=== PATIENT | female | born 1980 | race Caucasian/White ===

== ENCOUNTER → 2024-05-18 | Outpatient (CLI) | payer MEDICAID, SELFPAY ==
--- NOTE | 2024-05-18 | XR_ITS ---
Examination: Lumbar spine, 5 views Technique: Lumbar spine AP, lateral, coned lateral lower lumbar spine, bilateral obliques 5 views Exam date and time: May 18, 2024 at 1150 hours INDICATIONS: Back pain years FINDINGS: Partial reversal normal lumbar lordosis No lumbar fracture Mild lumbar spondylosis Mild disc narrowing L5-S1 No spondylolisthesis IMPRESSION: Mild lumbar spondylosis Mild disc narrowing L5-S1
--- NOTE | 2024-05-18 | XR_ITS ---
Examination: PA lateral chest 2 views TECHNIQUE: Upright PA lateral chest 2 views Exam date and time: May 18, 2024 1155 hours Comparison October 03, 2023 INDICATIONS: Coughing beginning 2 weeks ago. FINDINGS: Normal heart size No pneumonia or pulmonary edema Mild osteopenia IMPRESSION: No pneumonia identified
--- NOTE | 2024-05-18 | XR_ITS ---
EXAMINATION: Cervical spine, 5 views Technique: Cervical spine AP, AP odontoid, lateral, bilateral obliques, 5 views Exam date and time: May 182023 1150 hours INDICATIONS: Neck pain years. FINDINGS: Adequate alignment cervical vertebral bodies No cervical fracture Anterior osteophytes C6-C7 No significant cervical disc narrowing No significant neural foraminal stenosis IMPRESSION: No cervical fracture Intact odontoid Cervical spondylosis C6-C7
--- NOTE | 2024-05-18 | XR_ITS ---
Examination: Shoulder,left, 3 views Technique: Shoulder AP internal rotation, AP external rotation, Y view shoulder, 3 views Exam date and time :May 18, 2024 1150 hours INDICATIONS: Left shoulder pain years. FINDINGS: Mild osteopenia Mild narrowing glenohumeral joint No shoulder fracture or dislocation No calcific tendinitis IMPRESSION: Mild narrowing glenohumeral joint
--- NOTE | 2024-05-18 | XR_ITS ---
Examination: Thoracic spine 3 views Technique one AP lateral coned lateral thoracic spine 3 views Exam date and time: May 18, 2024 1150 hours INDICATIONS: Chronic back pain years. FINDINGS: Adequate alignment thoracic vertebral bodies No thoracic fracture or significant thoracic disc narrowing IMPRESSION: No thoracic fracture or significant arthritic change
[2024-05-18 12:40] LABS: Misc Send Out* See Sep Rpt
[2024-05-18 13:21] LABS: Basophils % (Auto) 0 % (0-2.5); Eosinophils # (Auto) 0.2 Thou/mm3 (0.0-0.5); Eosinophils % (Auto) 2 % (0-10); Hematocrit 39.9 % (36.0-46.0); Hemoglobin 13.4 g/dL (12.0-16.0); Immature Granulocytes % (Auto) 1 % (0-0); Immature Granulocytes Auto 0.07 Thou/mm3 (0.00-0.00); Lymphocytes # (Auto) 2.6 Thou/mm3 (1.0-4.8); Lymphocytes % (Auto) 26 % (10-50); Mean Corpuscular HGB Conc 33.6 g/dl (31.0-37.0); Mean Corpuscular Hemoglobin 29.5 pg (25.0-35.0); Mean Corpuscular Volume 88 fL (80-100); Monocytes # (Auto) 0.6 Thou/mm3 (0.0-0.8); Monocytes % (Auto) 6 % (0-12); Neutrophils # (Auto) 6.6 Thou/mm3 (1.8-7.7); Neutrophils % (Auto) 66 % (37-80); Nucleated Red Blood Cell % 0 /100 WBC (0); Platelet Count 299 Thou/mm3 (140-440); RDW Standard Deviation 41.7 fL (36.4-46.3); Red Blood Count 4.54 Miln/mm3 (4.00-5.20)
[2024-05-18 13:26] LABS: Iron 98 mcg/dL (50-170)
[2024-05-18 13:30] LABS: Glucose Estimated Average 103 mg/dL (80-131); Hemoglobin A1C 5.2 % Hgb (4.8-6.0)
[2024-05-18 13:33] LABS: Vitamin B12 346 pg/mL (211-911); Vitamin D 25 Hydroxy Total 27.3 ng/mL (7.3-40.2)
[2024-05-18 13:38] LABS: Alanine Aminotransferase 23 U/L (10-49); Albumin/Globulin Ratio 2.3 (1.2-2.2); Alkaline Phosphatase 84 U/L (46-116); Anion Gap 7 (7-16); Aspartate Amino Transferase 19 U/L (0-34); BUN/Creatinine Ratio 12 Ratio (12-20); Bilirubin,Total 0.6 mg/dL (0.3-1.2); Blood Urea Nitrogen 11 mg/dL (9-23); Calcium 9.8 mg/dL (8.3-10.6); Calcium (Corrected) 9.8 mg/dL (8.5-10.1); Carbon Dioxide 26.8 mMol/L (20.0-31.0); Cardiac Risk Estimate 3.9 RATIO (3.7-5.6); Chloride 107 mMol/L (98-107); Cholesterol 232 mg/dL (132-200); Creatinine (Component) 0.9 mg/dL (0.6-1.3); Globulin 2.2 gm/dL (2.3-3.5); Glucose 96 mg/dL (74-106); HDL Cholesterol 59 mg/dL (40-60); LDL Cholesterol,Calculated 129 mg/dL (0-130); Magnesium 1.9 mg/dL (1.6-2.6); Osmolality,Calculated 280 (275-295); Phosphorous 3.4 mg/dL (2.4-5.1); Potassium 3.9 mMol/L (3.4-5.1); Sodium 141 mMol/L (136-145); Thyroid Stimulating Hormone 1.02 uIU/mL (0.55-4.78); Total Protein 7.2 gm/dL (5.7-8.2); Triglycerides 220 mg/dL (30-150); eGFR > 60 See Note
[2024-05-18 14:57] LABS: Sed Rate (ESR) 9 mm/hr (0-20)
[2024-05-24 06:33] LABS: T3,Total* 119 ng/dL (76-181); Thyroglobulin Antibodies* <1 IU/mL (< OR = 1)
== END | disposition home or self-care (01) ==
LOC: CDIM 11:12 → COPL 12:25
PROVIDERS: PCP Internal Medicine; Referring Provider Internal Medicine; Visit Provider Radiology Diagnostic Radiology
DX: M47.812 Spondylosis without myelopathy or radiculopathy, cervical region (principal); R06.02 Shortness of breath; M25.50 Pain in unspecified joint; M25.812 Other specified joint disorders, left shoulder; M47.816 Spondylosis without myelopathy or radiculopathy, lumbar region; M48.07 Spinal stenosis, lumbosacral region; M06.4 Inflammatory polyarthropathy; E11.65 Type 2 diabetes mellitus with hyperglycemia; E78.2 Mixed hyperlipidemia; R76.8 Other specified abnormal immunological findings in serum
CPT/HCPCS: 36415; 71046; 72050; 72070; 72110; 73030; 80053; 80061; 82306; 82607; 83036; 83540; 83735; 84100; 84443; 84480; 85025; 85652; 86038; 86800

== ENCOUNTER → 2024-12-01 | Outpatient (CLI) | payer MEDICAID, SELFPAY ==
--- NOTE | 2024-12-01 12:30 | XR_ITS ---
Examination: Thyroid sonography complete TECHNIQUE: Grayscale sonographic images thyroid lobes Date and time: December 01, 2024 1246 hours INDICATIONS: Thyroid sonogram January 25, 2021 lower pole right thyroid nodule 2.5 x 1.9 cm with history biopsy FINDINGS: Right thyroid 5.1 cm Midpole nodule 2.4 x 1.5 x 1.7 cm Left thyroid 4.4 cm No thyroid nodules IMPRESSION: Stable right thyroid nodule
== END | disposition home or self-care (01) ==
LOC: CDIM 12:27
PROVIDERS: PCP Nurse Practitioner Family; Referring Provider Nurse Practitioner Family; Visit Provider Nurse Practitioner Family
DX: E04.1 Nontoxic single thyroid nodule (principal)
CPT/HCPCS: 76536